=== PATIENT | female | born 1955 | race Caucasian/White ===

== ENCOUNTER → 2016-08-17 | Outpatient (CLI) | payer BC ==
[2014-06-05 22:22] VITALS: BP 168/81
[~2016-08-17] MED LIST: CYCL10TA2 PO; ESOM40SU PO; HYDR-2762 PO; TRAM-29 PO; TRAZ100T12 PO; ZOLPIDEM 5 MG TABLET. PO ONE
--- NOTE | 2016-08-18 21:24 | SLEEP ---
DATE OF STUDY: 08/17/2016 ATTENDING PHYSICIAN: Dr. Velarde. OBJECTIVE: The patient is a 60-year-old female with insomnia, hypersomnia, fatigue and memory lapses. Height 5 feet 5 inches, weight 160 pounds, body mass index 27. [place] sleep score 0. INTERPRETATION: Sleep architecture is characterized by a sleep efficiency of 79% across the 7 hours of recording time. Stage volumes are appropriate for age. Sleep onset latency is 1.3 minutes. Respiratory monitoring shows a total of 33 events for an apnea-hypopnea index of 6 events per hour of sleep. The minimum oxygen saturation is 92%. Periodic limb movements of sleep occur at the rate of 44 events per hour of sleep, 3 events per hour of sleep, associated with arousal. No cardiac arrhythmias are seen. A full EEG montage was recorded during the study and there is no epileptiform activity. IMPRESSION: Normal polysomnogram showing no evidence of sleep disordered breathing, epileptic discharges. There are periodic limb movements of sleep as stated above. RECOMMENDATIONS: One could consider for treatment for periodic limb movements of sleep, but these are not causing a significant number of arousals. Otherwise, no sleep-____ related recommendations. Thank you for letting us help with the patient's care. JUAN C KENDALL MD DR: SUNDAR/denton JOB#: [id number] / [id number] ALISIA Naylor MD
== END | disposition home or self-care (01) ==
LOC: SLPLAB 18:16
PROVIDERS: ATTEND Family Medicine
DX: G47.00 Insomnia, unspecified (principal); G47.10 Hypersomnia, unspecified; R41.3 Other amnesia
CPT/HCPCS: 95810

== ENCOUNTER 2018-08-06 19:22 | Emergency (ER) | payer BC, OTHER ==
[~2018-08-06] VITALS: Ht 162.6 cm; Wt 70.8 kg
[~2018-08-06 19:22] MED LIST changes: -HYDR-2762 PO; +HYDR-2765 PO; -TRAM-29 PO; +TRAM-48 PO; +TRAZ-86 PO; -TRAZ100T12 PO; -ZOLPIDEM 5 MG TABLET. PO ONE
[2018-08-06 19:55] VITALS: BP 194/77
[2018-08-06] MEDS ORDERED: TRAM50TA PO (20:14)
[2018-08-06] MEDS ORDERED: DIAZ5TAB PO (20:14)
--- NOTE | 2018-08-06 20:15 | PHYS DOC ---
Past Medical History Past Medical History: Other Additional Past Medical Histor: ruptured disk Past Surgical History: Appendectomy, Cholecystectomy, Other Additional Past Surgical Histo: Colon resection Alcohol Use: None Drug Use: None Adult General Chief Complaint Chief Complaint: Neck Pain HPI HPI Patient is a 62 year old female who presents with left neck pain going down into her shoulder. She does not remember an injury, but might have slept wrong. She denies fever, headache or pain in back. Review of Systems Review of Systems Constitutional: Denies fever or chills [] Respiratory: Denies cough or shortness of breath [] Cardiovascular: No additional information not addressed in HPI [] Musculoskeletal: She HPI Integument: Denies rash or skin lesions [] Neurologic: Denies headache, focal weakness or sensory changes [] Endocrine: Denies polyuria or polydipsia [] All other systems were reviewed and found to be within normal limits, except as documented in this note. Allergies Allergies Allergies Coded Allergies Type Severity Reaction Last Updated Verified Sulfa (Sulfonamide Antibiotics) Allergy Intermediate hives 05/07/13 Yes Physical Exam Physical Exam Constitutional: Well developed, well nourished, no acute distress, non-toxic appearance. [] Cardiovascular:Heart rate regular rhythm, no murmur [] Lungs & Thorax: Bilateral breath sounds clear to auscultation [] Abdomen: Bowel sounds normal, soft, no tenderness, no masses, no pulsatile masses. [] Skin: Warm, dry, no erythema, no rash. [] Back: No tenderness, no CVA tenderness. [] Extremities: Tenderness to trapezius with spasming noted, ROM intact, no edema. [] Neurologic: Alert and oriented X 3, normal motor function, normal sensory function, no focal deficits noted. [] Psychologic: Affect normal, judgement normal, mood normal. [] EKG EKG [] Radiology/Procedures Radiology/Procedures [] Course & Med Decision Making Course & Med Decision Making Pertinent Labs and Imaging studies reviewed. (See chart for details) [] Dragon Disclaimer Dragon Disclaimer This electronic medical record was generated, in whole or in part, using a voice recognition dictation system. Departure Departure Impression: Primary Impression: Trapezius muscle spasm Disposition: 01 HOME, SELF-CARE Condition: STABLE Referrals: ALISIA GONZALEZ MD (PCP) Patient Instructions: Muscle Strain Additional Instructions: Take the medication as directed. Do not drive or operate heavy machinery until he no high he reacted this medication. Follow-up with your primary care provider in 3 days if not improving or return to the emergency department if worsening. Scripts Tramadol Hcl (TRAMADOL HCL) 50 Mg Tablet 50 MG PO DAILY PRN for PAIN, #20 TAB 0 Refills Prov: JANNIE ROQUE APRN 08/06/18 Diazepam (VALIUM) 5 Mg Tablet 5 MG PO TID for muscle spasm, #12 TAB Prov: JANNIE ROQUE APRN 08/06/18 JANNIE ROQUE APRN Aug 06, 2018 20:15
== END 2018-08-06 20:50 | disposition home or self-care (01) ==
LOC: ER 19:22
DX: M62.838 Other muscle spasm (principal); M54.2 Cervicalgia; Z88.2 Allergy status to sulfonamides
CPT/HCPCS: 99283

== ENCOUNTER → 2018-08-07 | Outpatient (CLI) | payer OTHER ==
[2018-08-06 19:55] VITALS: BP 194/77
[~2018-08-07] MED LIST changes: +CLON0.2T PO; +DIAZ5TAB PO; +TRAM50TA PO
--- NOTE | 2018-08-07 23:46 | RAD ---
CERVICAL SPINE 5V History: Neck pain, left arm pain since Monday Comparison: None. Findings: 6 views cervical spine are submitted. Cervical vertebral body stature is maintained. More advanced degenerative disc disease C4-5 and C5-6 and to lesser C6-7 with spondylosis greatest C5-6 and C4-5. There is minimal posterior subluxation of C4 relative to C5 and C5 relative to C6, negligible anterior spondylolisthesis at C3-4. There is adequate alignment of the lateral masses C1 relative to C2. There is atherosclerotic calcification of the carotid arteries in the neck bilaterally. Uncovertebral and facet degenerative change contributes to neural foramina compromise greatest on the left C4-5 and C5-6. Impression: 1. There is neural foramina compromise greatest left at C4-5 and C5-6. There is degenerative disc disease and spondylosis greatest C5-6 due to as well as greatest C4-5 and C6-7. There is mild abnormal alignment. Electronically signed by: David Mclean MD (08/07/2018 11:42 PM) [facility]
== END | disposition home or self-care (01) ==
LOC: RAD 16:33
PROVIDERS: ATTEND Family Medicine
DX: M50.321 Other cervical disc degeneration at C4-C5 level (principal); M47.892 Other spondylosis, cervical region; I70.0 Atherosclerosis of aorta
CPT/HCPCS: 72050

== ENCOUNTER → 2018-08-20 | Outpatient (CLI) | payer OTHER ==
[2018-08-06 19:55] VITALS: BP 194/77
--- NOTE | 2018-08-21 09:40 | KCIC ---
MRI of the cervical spine without contrast 08/20/2018 CLINICAL HISTORY: Neck pain with left arm weakness. TECHNIQUE: Unenhanced T1-weighted, T2-weighted and inversion recovery sagittal and gradient echo and T2-weighted axial images of the cervical spine were obtained. The patient was unable to tolerate further imaging and gradient echo axial images of the cervical spine were unable to be obtained. FINDINGS: Comparison is made to radiographs of cervical spine dated 08/07/2018. Mild lateral curvature of the cervical spine is seen convex to the left. There is slight reversal of the normal cervical lordosis. Degenerative signal changes are seen involving all of the disks of the cervical spine. Degenerative signal changes are seen within the marrow surrounding these discs. Loss of height of the C4-5, C5-6 and C6-7 discs is noted. No area of abnormal signal intensity is seen involving the cervical spinal cord. At the C2-3 disc space there is a minimal generalized disc bulge. Degenerative changes are seen involving the uncovertebral and facet joints bilaterally. These findings do not result in significant central spinal canal or neural foraminal stenosis. At the C3-4 disc space there is a mild generalized disc bulge. Degenerative changes are seen involving the uncovertebral and facet joints, left greater than right. These findings when combined do not result in significant central spinal canal stenosis. Mild left neural foraminal stenosis is seen. The right neural foramen is patent. At the C4-5 disc space there is a mild to moderate generalized disc bulge. Degenerative changes are seen involving the uncovertebral and facet joints, right greater than left. These findings when combined efface the anterior and posterior CSF resulting in mild central spinal canal stenosis without evidence of cord impingement. Mild to moderate right greater than left neural foraminal stenosis is seen. At the C5-6 disc space there is a mild to moderate generalized disc bulge. Degenerative changes are seen involving the uncovertebral and facet joints, left greater than right. These findings when combined efface the anterior CSF resulting in mild central spinal canal stenosis without evidence of cord impingement. Mild bilateral neural foraminal stenosis is seen. At the C6-7 disc space there is a mild generalized disc bulge. Degenerative changes are seen involving the uncovertebral and facet joints, left greater than right. These findings when combined do not result in significant central spinal canal stenosis. Mild left neural foraminal stenosis is seen. The right neural foramen is patent. At the C7-T1 disc space there is a mild generalized disc bulge. Superimposed on this disc bulge is a left paracentral focal disc protrusion. This measures 4 mm in AP diameter. Degenerative changes are seen involving the facet joints, left greater than right. These findings when combined result in mild left lateral central spinal canal stenosis. Mild left neural foraminal stenosis is seen. The right neural foramen is patent. IMPRESSION: Degenerative changes are seen throughout the cervical spine. These findings result in mild central spinal canal stenosis at C4-5 and C5-6 and mild left lateral central spinal canal stenosis at C7-T1 without evidence of cord impingement. Multilevel neural foraminal stenosis of varying severity is seen as outlined above. Electronically signed by: Shant Ortiz MD (08/21/2018 9:37 AM) [facility]
== END | disposition home or self-care (01) ==
LOC: KCIC MRI 17:22
PROVIDERS: ATTEND Family Medicine
DX: M47.22 Other spondylosis with radiculopathy, cervical region (principal); M48.02 Spinal stenosis, cervical region; M48.03 Spinal stenosis, cervicothoracic region; M50.13 Cervical disc disorder with radiculopathy, cervicothoracic region; R29.890 Loss of height
CPT/HCPCS: 72141

== ENCOUNTER 2018-09-04 17:40 | Emergency (ER) | payer OTHER ==
[~2018-09-04] VITALS: Ht 162.6 cm; Wt 72.6 kg
[~2018-09-04 17:40] MED LIST changes: -CLON0.2T PO
[2018-09-04 18:40] LABS: BASO % 1 % (0-3); EOS # 0.1 x10^3/uL (0.0-0.7); EOS % 1 % (0-3); HEMATOCRIT 38.1 % (36.0-47.0); HEMOGLOBIN 12.9 g/dL (12.0-15.5); LYMPH # 1.5 x10^3/uL (1.0-4.8); LYMPH % 18 % (24-48); MEAN CORPUSCULAR HEMOGLOBIN 27 pg (25-35); MEAN CORPUSCULAR HGB CONC 34 g/dL (31-37); MEAN CORPUSCULAR VOLUME 80 fL (79-100); MONO # 0.4 x10^3/uL (0.0-1.1); MONO % 5 % (0-9); NEUT # 6.1 x10^3uL (1.8-7.7); NEUT % 75 % (31-73); PLATELET COUNT 227 x10^3/uL (140-400); RED BLOOD COUNT 4.73 x10^6/uL (3.50-5.40); RED CELL DISTRIBUTION WIDTH 14.2 % (11.5-14.5); WHITE BLOOD COUNT 8.1 x10^3/uL (4.0-11.0)
[2018-09-04 18:59] LABS: CALCIUM 9.1 mg/dL (8.5-10.1); POTASSIUM 3.5 mmol/L (3.5-5.1)
[2018-09-04] MEDS ORDERED: hydrALAZINE 20 MG/ML VIAL. IVP ONE (19:00)
[2018-09-04 19:04] LABS: ALBUMIN 3.8 g/dL (3.4-5.0); MAGNESIUM 2.3 mg/dL (1.8-2.4); TOTAL BILIRUBIN 0.3 mg/dL (0.2-1.0); TOTAL PROTEIN 7.8 g/dL (6.4-8.2)
--- NOTE | 2018-09-04 20:26 | RAD ---
PQRS Compliance statement: One or more of the following individualized dose reduction techniques were utilized for this examination: 1. Automated exposure control. 2. Adjustment of the mA and/or kV according to patient size. 3. Use of iterative reconstruction technique. Indication:HTN, nausea, dizzy, no priors TECHNIQUE: CT head without IV contrast COMPARISON:None FINDINGS: No pathologic extra-axial or intra-axial fluid collection. The ventricles and basal cisterns are within normal limits. No acute intracranial bleed. No focal loss of mendez-white differentiation. Orbits are within normal limits. No suspicious calvarial lesion. Visualized paranasal sinuses and mastoid air cells are clear. IMPRESSION: No acute intracranial process. If concern for acute ischemic stroke is high, please consider MRI brain. Electronically signed by: Moises Clements DO (09/04/2018 8:23 PM) [facility]
[2018-09-04 20:31] LABS: BILIRUBIN,URINE NEGATIVE (NEG); CLARITY,URINE CLEAR; COLOR,URINE YELLOW; NITRITE,URINE NEGATIVE (NEG); PH,URINE 7.5; PROTEIN,URINE NEGATIVE (NEG-TRACE); UROBILINOGEN,URINE 0.2 mg/dL (0.2 mg/dL)
[2018-09-04 20:40] LABS: BACTERIA,URINE 0 /HPF (0-FEW); RBC,URINE 0 /HPF (0-2); SQUAMOUS EPITHELIAL CELL,UR FEW /LPF; WBC,URINE 0 /HPF (0-4)
[2018-09-04 20:46] VITALS: BP 161/70
[2018-09-04] MEDS ORDERED: CLON0.2T PO (21:08)
--- NOTE | 2018-09-04 21:08 | PHYS DOC ---
Past Medical History Past Medical History: Hypertension, Other Additional Past Medical Histor: ruptured disk, CHRONIC NECK PAIN Past Surgical History: Appendectomy, Cholecystectomy, Other Additional Past Surgical Histo: Colon resection Alcohol Use: None Drug Use: None Adult General Chief Complaint Chief Complaint: HYPERTENSION HPI HPI Patient is a 62 year old [f__sex] who presents with [] Review of Systems Review of Systems Constitutional: Denies fever or chills [] Eyes: Denies change in visual acuity, redness, or eye pain [] HENT: Denies nasal congestion or sore throat [] Respiratory: Denies cough or shortness of breath [] Cardiovascular: No additional information not addressed in HPI [] GI: Denies abdominal pain, nausea, vomiting, bloody stools or diarrhea [] : Denies dysuria or hematuria [] Musculoskeletal: Denies back pain or joint pain [] Integument: Denies rash or skin lesions [] Neurologic: Denies headache, focal weakness or sensory changes [] Endocrine: Denies polyuria or polydipsia [] All other systems were reviewed and found to be within normal limits, except as documented in this note. Current Medications Current Medications Current Medications Medications (Trade) Dose Ordered Sig/Paul Start Time Stop Time Status Last Admin Dose Admin Hydralazine HCl (Apresoline Inj) 20 mg 1X ONCE 09/04/18 19:00 09/04/18 19:01 DC 09/04/18 19:28 20 MG Allergies Allergies Allergies Coded Allergies Type Severity Reaction Last Updated Verified Sulfa (Sulfonamide Antibiotics) Allergy Intermediate hives 05/07/13 Yes Physical Exam Physical Exam Constitutional: Well developed, well nourished, no acute distress, non-toxic appearance. [] HENT: Normocephalic, atraumatic, bilateral external ears normal, oropharynx moist, no oral exudates, nose normal. [] Eyes: PERRLA, EOMI, conjunctiva normal, no discharge. [] Neck: Normal range of motion, no tenderness, supple, no stridor. [] Cardiovascular:Heart rate regular rhythm, no murmur [] Lungs & Thorax: Bilateral breath sounds clear to auscultation [] Abdomen: Bowel sounds normal, soft, no tenderness, no masses, no pulsatile masses. [] Skin: Warm, dry, no erythema, no rash. [] Back: No tenderness, no CVA tenderness. [] Extremities: No tenderness, no cyanosis, no clubbing, ROM intact, no edema. [] Neurologic: Alert and oriented X 3, normal motor function, normal sensory function, no focal deficits noted. [] Psychologic: Affect normal, judgement normal, mood normal. [] Current Patient Data Vital Signs Vital Signs Date Time Temp Pulse Resp B/P (MAP) Pulse Ox O2 Delivery O2 Flow Rate FiO2 09/04/18 19:28 56 208/91 09/04/18 18:25 98.5 20 100 Room Air 98.5 Lab Values Laboratory Tests Test 09/04/18 18:30 09/04/18 20:00 White Blood Count 8.1 x10^3/uL (4.0-11.0) Red Blood Count 4.73 x10^6/uL (3.50-5.40) Hemoglobin 12.9 g/dL (12.0-15.5) Hematocrit 38.1 % (36.0-47.0) Mean Corpuscular Volume 80 fL (79-100) Mean Corpuscular Hemoglobin 27 pg (25-35) Mean Corpuscular Hemoglobin Concent 34 g/dL (31-37) Red Cell Distribution Width 14.2 % (11.5-14.5) Platelet Count 227 x10^3/uL (140-400) Neutrophils (%) (Auto) 75 % (31-73) H Lymphocytes (%) (Auto) 18 % (24-48) L Monocytes (%) (Auto) 5 % (0-9) Eosinophils (%) (Auto) 1 % (0-3) Basophils (%) (Auto) 1 % (0-3) Neutrophils # (Auto) 6.1 x10^3uL (1.8-7.7) Lymphocytes # (Auto) 1.5 x10^3/uL (1.0-4.8) Monocytes # (Auto) 0.4 x10^3/uL (0.0-1.1) Eosinophils # (Auto) 0.1 x10^3/uL (0.0-0.7) Basophils # (Auto) 0.0 x10^3/uL (0.0-0.2) Sodium Level 142 mmol/L (136-145) Potassium Level 3.5 mmol/L (3.5-5.1) Chloride Level 102 mmol/L (98-107) Carbon Dioxide Level 28 mmol/L (21-32) Anion Gap 12 (6-14) Blood Urea Nitrogen 12 mg/dL (7-20) Creatinine 1.0 mg/dL (0.6-1.0) Estimated GFR (Cockcroft-Gault) 56.0 BUN/Creatinine Ratio 12 (6-20) Glucose Level 99 mg/dL (70-99) Calcium Level 9.1 mg/dL (8.5-10.1) Magnesium Level 2.3 mg/dL (1.8-2.4) Total Bilirubin 0.3 mg/dL (0.2-1.0) Aspartate Amino Transferase (AST) 19 U/L (15-37) Alanine Aminotransferase (ALT) 23 U/L (14-59) Alkaline Phosphatase 106 U/L (46-116) Creatine Kinase 163 U/L (26-192) Creatine Kinase MB (Mass) 1.2 ng/mL (0.0-3.6) Creatine Kinase MB Relative Index 0.7 % (0-4) Troponin I Quantitative < 0.017 ng/mL (0.000-0.055) Total Protein 7.8 g/dL (6.4-8.2) Albumin 3.8 g/dL (3.4-5.0) Albumin/Globulin Ratio 1.0 (1.0-1.7) Urine Collection Type Unknown Urine Color Yellow Urine Clarity Clear Urine pH 7.5 Urine Specific [place] <=1.005 Urine Protein Negative mg/dL (NEG-TRACE) Urine Glucose (UA) Negative mg/dL (NEG) Urine Ketones (Stick) Negative mg/dL (NEG) Urine Blood Negative (NEG) Urine Nitrite Negative (NEG) Urine Bilirubin Negative (NEG) Urine Urobilinogen Dipstick 0.2 mg/dL (0.2 mg/dL) Urine Leukocyte Esterase Negative (NEG) Urine RBC 0 /HPF (0-2) Urine WBC 0 /HPF (0-4) Urine Squamous Epithelial Cells Few /LPF Urine Bacteria 0 /HPF (0-FEW) Laboratory Tests 09/04/18 18:30 Laboratory Tests 09/04/18 18:30 EKG EKG @1852 NSR at 59bpm, NO ST elevation Radiology/Procedures Radiology/Procedures [] Course & Med Decision Making Course & Med Decision Making Pertinent Labs and Imaging studies reviewed. (See chart for details) [] Dragon Disclaimer Dragon Disclaimer This electronic medical record was generated, in whole or in part, using a voice recognition dictation system. Departure Departure Impression: Primary Impression: Hypertensive urgency Disposition: HOME, SELF-CARE Condition: IMPROVED Referrals: ALISIA GONZALEZ MD (PCP) Patient Instructions: Hypertension, Jcew-rv-Emhw Scripts Clonidine Hcl (CLONIDINE HCL) 0.2 Mg Tablet 1 TAB PO BID PRN for HYPERTENSION, SEE COMMENTS, #20 TAB 0 Refills Take for Systolic blood pressure > 185 and/or diastolic blood pressure > 105. Prov: DARLENE RIOS DO 09/04/18 DARLENE RIOS DO Sep 04, 2018 21:08
--- NOTE | 2018-09-05 07:57 | EKG ---
[facility] [address] [place] [address] Test Date: 2018-09-04 Test Time: 18:52:57 Pat Name: ELLIE SOW Department: Room: Gender: F [employer]: : 1955 Requested By: DARLENE RIOS Order Number: [id number] Reading MD: Hamzah Armstrong MD Measurements Intervals [place] Rate: 59 P: 38 OK: 146 QRS: 24 QRSD: 106 T: 51 QT: 468 QTc: 468 Interpretive Statements SINUS RHYTHM Electronically Signed On 09-06-2018 9:12:28 CDT by Hamzah Armstrong MD
== END 2018-09-04 21:24 | disposition home or self-care (01) ==
LOC: ER 17:40
DX: I16.0 Hypertensive urgency (principal); R07.89 Other chest pain; G89.29 Other chronic pain; M54.2 Cervicalgia
CPT/HCPCS: 36415; 70450; 80053; 81001; 82553; 83735; 84484; 85025; 93005; 96374; 99284; J0360

== ENCOUNTER → 2019-01-11 | Outpatient (CLI) | payer OTHER ==
[~2019-01-11] MED LIST changes: +CLON0.2T PO; +REGADENOSON 0.4 MG/5 ML DISP.SYRIN. IV ONE
--- NOTE | 2019-01-11 08:26 | CARD ---
MR#: [id number] Date of Study: 01/11/2019 Ordering Physician: REYNA SPARKS, Referring Physician: REYNA SPARKS Tech: Jessica Urias JIMMY APPROVED REPORT EXAM: Two-dimensional and M-mode echocardiogram with Doppler and color Doppler. Other Information Quality : GoodHR: 64bpm Rhythm : NSR INDICATION Dyspnea 2D DIMENSIONS RVDd3.0 (2.9-3.5cm)Left Atrium(2D)3.4 (1.6-4.0cm) IVSd1.0 (0.7-1.1cm)Aortic Root(2D)3.0 (2.0-3.7cm) LVDd4.8 (3.9-5.9cm)LVOT Diameter1.9 (1.8-2.4cm) PWd0.9 (0.7-1.1cm)LVDs3.0 (2.5-4.0cm) FS (%) 38.9 %SV75.5 ml LVEF(%)69.1 (>50%) Aortic Valve AoV Peak Nacho.157.7cm/sAoV VTI33.2cm AO Peak GR.9.9mmHgLVOT Peak Nacho.104.8cm/s AO Mean GR.5mmHgAVA (VMAX)1.82cm2 JULIANNA (VTI)1.90cm2 Mitral Valve MV E Knxfctdu089.1cm/sMV DECEL SLSC532af MV A Tfzpvslg53.2cm/sE/A Ratio1.1 Pulmonary Valve PV Peak Qywdhhcf87.2cm/s Tricuspid Valve TR P. Ydbvotni266ix/sRAP KTYWPQHY6tpLl TR Peak Gr.16rzJfLAKF74bwAj LEFT VENTRICLE The left ventricle is normal size. There is normal left ventricular wall thickness. The left ventricu lar systolic function is normal and the ejection fraction is within normal range. The Ejection Fracti on is 65-70%. There is normal LV segmental wall motion. Transmitral Doppler flow pattern is Grade II- pseudonormal filling dynamics. RIGHT VENTRICLE The right ventricle is normal size. There is normal right ventricular wall thickness. The right ventr icular systolic function is normal. ATRIA The left atrium size is normal. The right atrium size is normal. The interatrial septum is intact wit h no evidence for an atrial septal defect or patent foramen ovale as noted on 2-D or Doppler imaging. AORTIC VALVE The aortic valve is normal in structure and function. The aortic valve is trileaflet. Doppler and Col or Flow revealed no significant aortic regurgitation. There is no significant aortic valvular stenosi s. There is no aortic valvular vegetation. MITRAL VALVE The mitral valve is thickened but opens well. There is no evidence of mitral valve prolapse. There is no mitral valve stenosis. Doppler and Color-flow revealed trace to mild mitral regurgitation. TRICUSPID VALVE The tricuspid valve is normal in structure and function. Doppler and Color Flow revealed trace tricus pid regurgitation. The PA pressure was estimated at 39 mmHg. There is no tricuspid valve prolapse or vegetation. There is no tricuspid valve stenosis. PULMONIC VALVE Doppler and Color Flow revealed mild pulmonic valvular regurgitation. There is no pulmonic valvular s tenosis. GREAT VESSELS The aortic root is normal in size. The ascending aorta is normal in size. The IVC is normal in size a nd collapses >50% with inspiration. PERICARDIAL EFFUSION There is no evidence of significant pericardial effusion. Critical Notification Critical Value: No <Conclusion> The left ventricular systolic function is normal and the ejection fraction is within normal range. Th e Ejection Fraction is 65-70%. There is normal LV segmental wall motion. Signed by : Hamzah Armstrong, Electronically Approved : 01/11/2019 08:26:11
--- NOTE | 2019-01-11 14:11 | RAD ---
MR#: [id number] Date of Study: 01/11/2019 Ordering Physician: REYNA SPARKS Referring Physician: KAMRYN DAS Tech: Regan Zhang RT (R) (N) APPROVED REPORT Test Type: Pharmacological Stress Nurse/Tech: Jessica Akhtar R.N. Test Indications: MCCONNELL Cardiac History: HTN Medications: See Electronic Medical Record Medical History: See Electronic Medical Record Resting ECG: SR w/inverted T wave in leads AVL, V2 Resting Heart Rate: 65 bpm Resting Blood Pressure: 219/89mmHg Pretest Chest Pain: No chest pain Nurse/Tech Notes S1S2, lungs CTA, notified Dr. Sparks of [facility] b/p - to go ahead with MPI Consent: The procedure was explained to the patient in lay terms. Informed consent was witnessed. Mega eout was entered into [employer]. History and Stress Test performed by [facility]. Details Pharmacologic stress testing was performed using 0.4mg per 5ml of regadenoson given intravenously ove r 7-10 seconds. Stress Symptoms SOB POST EXERCISE Reason for Termination: Infusion complete Max HR: 96 bpm Max Blood Pressure: 218/92mmHg Blood Pressure response to exercise: Normal blood pressure response during stress. Heart Rate response to exercise: wnl Chest Pain: No. Arrhythmia: No. ST Change: No. INTERPRETATION Stress EKG Conclusion: Baseline EKG showed sinus rhythm. No ischemic changes at peak stress. No arr hythmias. Rest: Stress: Viability: Radiopharm.Tc99m QlbyjgimtPq68q Sestamibi Kbdj86aZb 33mCi Duration 15min. 15min. Img Date 01/11/2019 01/11/2019 Inj-Img Vwvc59lrl. 60min. Rest Admin Site:IV - Right AntecubitalAdministrator:MILTON Maloney Stress Admin Site: IV - Right AntecubitalAdministrator: MILTON Maloney STRESS DATA End Diast. Vol.81.0mlLVEDV index BSA46.0ml End Syst. Vol.20.0mlLVESV index BSA11.0ml Myocardial Mxmg168.0gEject. Rlxhsleh33.0% Stress Scores Regional WT1.00Summed WT9.00 Regional WM0.00Summed WM0.00 Study quality was good. Left Ventricular size was Normal at Rest and Stress. Lung uptake was . Left Ventricular ejection fraction is 75%. The rest and stress images show normal perfusion, normal contraction and thickening. LV Perf. Quant 17 Seg. SSS0.00 17 Seg. SRS0.00 17 Seg. SDS0.00 Stress Defect Extent (% LAD)0.00Rest Defect Extent (% LAD)3.80Rev. Defect Extent (% LAD)0.00 Stress Defect Extent (% LCX) 0.00Rest Defect Extent (% LCX)0.00Rev. Defect Extent (% LCX)0.00 Stress Defect Extent (% RCA)0.00Rest Defect Extent (% RCA)0.00Rev. Defect Extent (% RCA)0.00 Stress Defect Extent (% MANASA)0.00Rest Defect Extent (% MANASA)1.50Rev. Defect Extent (% MANASA)0.00 Conclusion 1. Regadenoson cardioisotope stress test did not show any evidence of ischemia or infarct. 2. Normal left ventricular systolic function with ejection fraction calculated at 75%. 3. Low risk for cardiac events. Signed by : Reyna Sparks, Electronically Approved : 01/11/2019 14:11:28
== END | disposition home or self-care (01) ==
LOC: ECHO 07:36
PROVIDERS: ATTEND Internal Medicine Cardiovascular Disease
DX: I08.8 Other rheumatic multiple valve diseases (principal); I10 Essential (primary) hypertension
CPT/HCPCS: 78452; 93017; 93306; A9500; J2785

== ENCOUNTER → 2019-01-23 | Outpatient (CLI) | payer OTHER ==
[~2019-01-23] MED LIST changes: -REGADENOSON 0.4 MG/5 ML DISP.SYRIN. IV ONE
--- NOTE | 2019-01-23 16:07 | RAD ---
DATE: 01/23/2019. EXAM: MAMMO [place] SCREENING BILATERAL HISTORY: Routine screening. COMPARISON: Previous mammogram from 2016. This study was interpreted with the benefit of Computerized Aided Detection (CAD). FINDINGS: Breast Density: HETERO The breast parenchyma Is heterogeneously dense, which could reduce sensitivity of mammography. Breast parenchyma level C. The skin and nipples are within normal limits. No suspicious calcifications, spiculated mass or area of architectural distortion. Small round mass along the posterior nipple line in the left breast also present on previous exam and considered benign given interval stability. IMPRESSION: No mammographic evidence of malignancy. BI-RADS CATEGORY: 2 BENIGN FINDING(S) RECOMMENDED FOLLOW-UP: 12M 12 MONTH FOLLOW-UP PQRS compliance statement: Patient information was entered into a reminder system with a target due date for the next mammogram. Mammography is a sensitive method for finding small breast cancers, but it does not detect them all and is not a substitute for careful clinical examination. A negative mammogram does not negate a clinically suspicious finding and should not result in delay in biopsying a clinically suspicious abnormality. "Our facility is accredited by the [employer] Mammography Program."
== END | disposition home or self-care (01) ==
LOC: MAMMO 12:26
PROVIDERS: ATTEND Nurse Practitioner Family
DX: Z12.31 Encounter for screening mammogram for malignant neoplasm of breast (principal); N63.20 Unspecified lump in the left breast, unspecified quadrant
CPT/HCPCS: 77063; 77067

== ENCOUNTER 2019-07-22 04:28 | Observation (INO) | payer OTHER ==
[~2019-07-22] VITALS: Ht 162.6 cm; Wt 68.2 kg
[~2019-07-22 04:28] MED LIST changes: +TRAZ-123 PO; -TRAZ-86 PO
[2019-07-22] MEDS ORDERED: NITROGLYCERIN SUBLINGUAL 0.4 MG BOTTLE OF 25. SL PRN ×2 (04:45→05:45)
[2019-07-22] MEDS ORDERED: MORPHINE SULFATE 2 MG/ML VIAL. IV/SQ PRN (04:45)
--- NOTE | 2019-07-22 04:46 | PHYS DOC ---
Past Medical History Past Medical History: Hypertension, Other Additional Past Medical Histor: ruptured disk, CHRONIC NECK PAIN Past Surgical History: Appendectomy, Cholecystectomy, Other Additional Past Surgical Histo: Colon resection Smoking Status: Never Smoker Alcohol Use: None Drug Use: None Adult General Chief Complaint Chief Complaint: CHEST PAIN HPI HPI 63-year-old female with underlying history of hypertension since the emergency Department complaints of not feeling well initially around 11:30 PM, she states she woke up around 2 AM with chest pressure and tightness. She describes shortness of breath, denies any nausea, vomiting, diaphoresis. She states standing and exertion worsens her pain, nothing makes it better. She is underlying history of hypertension has seen cardiology within the last 6 months for stress test performed which were unremarkable. She denies any lower extremity edema or recent travel. She does describe family history of coronary artery disease. The chest pain/pressure does not radiate. Review of Systems Review of Systems Constitutional: Denies fever or chills [] Respiratory: Denies cough or shortness of breath [] Cardiovascular: No additional information not addressed in HPI [] GI: Denies abdominal pain, nausea, vomiting, bloody stools or diarrhea [] Musculoskeletal: Denies back pain or joint pain [] Neurologic: Denies headache, focal weakness or sensory changes [] All other systems were reviewed and found to be within normal limits, except as documented in this note. Current Medications Current Medications Current Medications Medications (Trade) Dose Ordered Sig/[facility] Start Time Stop Time Status Last Admin Dose Admin Aspirin (Children'S Aspirin) 324 mg 1X ONCE 07/22/19 05:00 07/22/19 05:01 DC 07/22/19 05:09 324 MG Morphine Sulfate (Morphine Sulfate) 2 mg PRN Q15MIN PRN 07/22/19 04:45 07/23/19 04:44 07/22/19 05:10 2 MG Nitroglycerin (Nitrostat) 0.4 mg PRN Q5MIN PRN 07/22/19 04:45 07/23/19 04:44 07/22/19 05:09 0.4 MG Allergies Allergies Allergies Coded Allergies Type Severity Reaction Last Updated Verified Sulfa (Sulfonamide Antibiotics) Allergy Intermediate hives 05/07/13 Yes Physical Exam Physical Exam Constitutional: Well developed, well nourished, no acute distress, non-toxic appearance. [] HENT: Normocephalic, atraumatic, bilateral external ears normal, oropharynx moist, no oral exudates, nose normal. [] Eyes: PERRLA, EOMI, conjunctiva normal, no discharge. [] Neck: Normal range of motion, no tenderness, supple, no stridor. [] Cardiovascular:Heart rate regular rhythm, no murmur [] Lungs & Thorax: Bilateral breath sounds clear to auscultation [] Abdomen: Bowel sounds normal, soft, no tenderness, no masses, no pulsatile masses. [] Skin: Warm, dry, no erythema, no rash. [] Back: No tenderness, no CVA tenderness. [] Extremities: No tenderness, no cyanosis, no clubbing, ROM intact, no edema. [] Neurologic: Alert and oriented X 3, normal motor function, normal sensory function, no focal deficits noted. [] Psychologic: Affect normal, judgement normal, mood normal. [] Current Patient Data Vital Signs Vital Signs Date Time Temp Pulse Resp B/P (MAP) Pulse Ox O2 Delivery O2 Flow Rate FiO2 07/22/19 05:10 96 07/22/19 05:09 72 115/56 Lab Values Laboratory Tests Test 07/22/19 04:50 White Blood Count 8.6 x10^3/uL (4.0-11.0) Red Blood Count 4.82 x10^6/uL (3.50-5.40) Hemoglobin 12.8 g/dL (12.0-15.5) Hematocrit 38.8 % (36.0-47.0) Mean Corpuscular Volume 81 fL (79-100) Mean Corpuscular Hemoglobin 27 pg (25-35) Mean Corpuscular Hemoglobin Concent 33 g/dL (31-37) Red Cell Distribution Width 14.8 % (11.5-14.5) H Platelet Count 250 x10^3/uL (140-400) Neutrophils (%) (Auto) 84 % (31-73) H Lymphocytes (%) (Auto) 13 % (24-48) L Monocytes (%) (Auto) 2 % (0-9) Eosinophils (%) (Auto) 1 % (0-3) Basophils (%) (Auto) 0 % (0-3) Neutrophils # (Auto) 7.2 x10^3/uL (1.8-7.7) Lymphocytes # (Auto) 1.1 x10^3/uL (1.0-4.8) Monocytes # (Auto) 0.2 x10^3/uL (0.0-1.1) Eosinophils # (Auto) 0.1 x10^3/uL (0.0-0.7) Basophils # (Auto) 0.0 x10^3/uL (0.0-0.2) D-Dimer ([place]) 0.49 ug/mlFEU (0.00-0.50) Sodium Level 139 mmol/L (136-145) Potassium Level 3.5 mmol/L (3.5-5.1) Chloride Level 102 mmol/L (98-107) Carbon Dioxide Level 29 mmol/L (21-32) Anion Gap 8 (6-14) Blood Urea Nitrogen 29 mg/dL (7-20) H Creatinine 1.5 mg/dL (0.6-1.0) H Estimated GFR (Cockcroft-Gault) 35.0 BUN/Creatinine Ratio 19 (6-20) Glucose Level 191 mg/dL (70-99) H Calcium Level 9.1 mg/dL (8.5-10.1) Magnesium Level 2.0 mg/dL (1.8-2.4) Total Bilirubin 0.3 mg/dL (0.2-1.0) Aspartate Amino Transferase (AST) 17 U/L (15-37) Alanine Aminotransferase (ALT) 21 U/L (14-59) Alkaline Phosphatase 106 U/L (46-116) Troponin I Quantitative < 0.017 ng/mL (0.000-0.055) RG-Csx-[id number]-Type Natriuretic Peptide 113 pg/mL (0-124) Total Protein 6.9 g/dL (6.4-8.2) Albumin 3.7 g/dL (3.4-5.0) Albumin/Globulin Ratio 1.2 (1.0-1.7) Lipase 198 U/L (73-393) Laboratory Tests 07/22/19 04:50 Laboratory Tests 07/22/19 04:50 EKG EKG EKG reviewed 0 437, heart rate 72, normal sinus rhythm, axis, she has underlying evidence of incomplete right bundle branch block. She does have prolonged QT appreciated, No STEMI[] Radiology/Procedures Radiology/Procedures CXR wet read reveals no evidence of acute consolidation/pulmonary edema - 0524[] Course & Med Decision Making Course & Med Decision Making Pertinent Labs and Imaging studies reviewed. (See chart for details) []63-year-old female with underlying history of hypertension since the emergency Department complaints of not feeling well initially around 11:30 PM, she states she woke up around 2 AM with chest pressure and tightness. She describes shortness of breath, denies any nausea, vomiting, diaphoresis. She states standing and exertion worsens her pain, nothing makes it better. She is underlying history of hypertension has seen cardiology within the last 6 months for stress test performed which were unremarkable. She denies any lower extremity edema or recent travel. She does describe family history of coronary artery disease. The chest pain/pressure does not radiate. labs/Imaging reviewed Negative cardiac enzyme x 1 Ddimer negative ASA/NTG, morphine prn Zofran as needed HEART Score 4 Recommend admit with further cardiology consultation Dragon Disclaimer Dragon Disclaimer This electronic medical record was generated, in whole or in part, using a voice recognition dictation system. The HEART Score for CP Pts HEART Score for Chest Pain: HEART Score for Chest Pain Response (Comments) Value History Moderately Suspicious 1 ECG Nonspecific Repolarizatio 1 Age >45 - < 65 1 Risk Factors 1 or 2 Risk Factors 1 Total 4 Risk Factors: Risk Factors: DM, Current or recent (<one month) smoker, HTN, HLP, family history of CAD, obesity. Risk Scores: Score 0 - 3: 2.5% MACE over next 6 weeks - Discharge Home Score 4 - 6: 20.3% MACE over next 6 weeks - Admit for Clinical Observation Score 7 - 10: 72.7% MACE over next 6 weeks - Early Invasive Strategies Departure Departure Impression: Primary Impression: Chest pain Additional Impression: Hypertension Disposition: ADMITTED INPATIENT Admitting Physician: HIMZabrina Condition: STABLE Referrals: LIZBETH DEAN APRN (PCP) Problem Qualifiers Primary Impression: Chest pain Chest pain type: unspecified Qualified Codes: R07.9 - Chest pain, unspecified Additional Impression: Hypertension Hypertension type: essential hypertension Qualified Codes: I10 - Essential (primary) hypertension DO FORTE MD Jul 22, 2019 04:46
[2019-07-22 04:58] LABS: BASO % 0 % (0-3); EOS # 0.1 x10^3/uL (0.0-0.7); EOS % 1 % (0-3); HEMATOCRIT 38.8 % (36.0-47.0); HEMOGLOBIN 12.8 g/dL (12.0-15.5); LYMPH # 1.1 x10^3/uL (1.0-4.8); LYMPH % 13 % (24-48); MEAN CORPUSCULAR HEMOGLOBIN 27 pg (25-35); MEAN CORPUSCULAR HGB CONC 33 g/dL (31-37); MEAN CORPUSCULAR VOLUME 81 fL (79-100); MONO # 0.2 x10^3/uL (0.0-1.1); MONO % 2 % (0-9); NEUT # 7.2 x10^3/uL (1.8-7.7); NEUT % 84 % (31-73); PLATELET COUNT 250 x10^3/uL (140-400); RED BLOOD COUNT 4.82 x10^6/uL (3.50-5.40); RED CELL DISTRIBUTION WIDTH 14.8 % (11.5-14.5); WHITE BLOOD COUNT 8.6 x10^3/uL (4.0-11.0)
[2019-07-22] MEDS ORDERED: ASPIRIN CHEWABLE 81 MG TABLET. PO ONE (05:00)
[2019-07-22 05:07] LABS: CALCIUM 9.1 mg/dL (8.5-10.1); CREATININE 1.5 mg/dL (0.6-1.0); POTASSIUM 3.5 mmol/L (3.5-5.1)
[2019-07-22 05:13] LABS: ALBUMIN 3.7 g/dL (3.4-5.0); ALBUMIN/GLOBULIN RATIO 1.2 (1.0-1.7); TOTAL BILIRUBIN 0.3 mg/dL (0.2-1.0); TOTAL PROTEIN 6.9 g/dL (6.4-8.2)
[2019-07-22] MEDS ORDERED: MORPHINE SULFATE 2 MG/ML VIAL. IV PRN (05:45)
[2019-07-22] MEDS ORDERED: ONDANSETRON PF 4 MG/2 ML VIAL. IV PRN (05:45)
[2019-07-22] MEDS ORDERED: IV NORMAL SALINE 1000ML BAG 1,000 ML IV SCH (06:00)
[2019-07-22] MEDS ORDERED: ONDANSETRON PF 4 MG/2 ML VIAL. IVP ONE (06:00)
[2019-07-22 07:48] LABS: AMORPHOUS SEDIMENT,UR PRESENT /HPF; BACTERIA,URINE FEW /HPF (0-FEW); BILIRUBIN,URINE NEGATIVE (NEG); CLARITY,URINE CLEAR; COLOR,URINE YELLOW; NITRITE,URINE NEGATIVE (NEG); PROTEIN,URINE NEGATIVE (NEG-TRACE); RBC,URINE OCC /HPF (0-2); SQUAMOUS EPITHELIAL CELL,UR FEW /LPF; UROBILINOGEN,URINE 0.2 mg/dL (0.2 mg/dL)
--- NOTE | 2019-07-22 08:18 | RAD ---
EXAM: PORTABLE CHEST 1V INDICATION: Chest pain. TECHNIQUE: Single AP view COMPARISON: None FINDINGS: The heart size is normal. The great vessels appear unremarkable. There is no hilar or mediastinal mass. The lungs show mild pulmonary vascular congestion. There is no pleural effusion or pneumothorax. There are no significant osseous abnormalities. IMPRESSION: Mild pulmonary vascular congestion. Otherwise no acute cardiopulmonary process. Electronically signed by: Dori Hernandez MD (07/22/2019 8:15 AM) [id number]
[2019-07-22] MEDS ORDERED: traMADol 50 MG TABLET PO PRN (10:30)
[2019-07-22] MEDS ORDERED: HYDROcodone/APAP 7.5/325MG 1 TAB TABLET PO ONE (10:30)
[2019-07-22] MEDS ORDERED: LABETALOL 20 MG/4 ML DISP.SYRIN. IVP PRN (10:30)
[2019-07-22] MEDS ORDERED: CYCLOBENZAPRINE 10 MG TABLET. PO PRN (10:30)
[2019-07-22] MEDS ORDERED: traMADol 50 MG TABLET PO SCH (11:00)
[2019-07-22] MEDS ORDERED: diazePAM 5 MG TABLET PO SCH (11:00)
--- NOTE | 2019-07-22 15:36 | PDOC1 ---
History and Physical Date of Admission Date of Admission 07/22/2019 Identification/Chief Complaint Chief Complaint My chest hurts History of Present Illness History of Present Illness Patient is a 63-year-old female with past medical history of essential hypertension was in her usual state of health until approximately 2 in the morning prior to her visit to the emergency department when she woke up due to chest tightness. she describes precordial area pressure that she rates at 7 out of 10 in intensity with some nausea no vomiting no diaphoresis, no sensation of impending doom was reported by the patient no diaphoresis. Patient denies similar symptoms recently, she was evaluated in our institution on January 2019 she had a normal echo at that time with an ejection fraction of 65-70%. The patient denies any recent illnesses no cough no sputum production no sick contacts. She denies episodes recently of similar symptoms she denies waking up in the middle of the night with dyspnea she denies orthopnea no palpitations. Patient denies any rashes recently. Denies abdominal discomfort no nausea vomiting or diarrhea was reported. No urinary symptoms either. We were asked to admit the patient for chest pain evaluation. Initially the patient had hypertension which might as well have been the culprit of her discomforts. Current Problem List Problem List Problems Medical Problems: (1) Chest pain Status: Acute (2) Hypertension Status: Acute Current Medications Current Medications Current Medications Medications (Trade) Dose Ordered Sig/[facility] Start Time Stop Time Status Last Admin Dose Admin Acetaminophen/ Hydrocodone Bitart (Lortab 7.5/325) 1 tab 1X ONCE 07/22/19 10:30 07/22/19 10:51 DC 07/22/19 13:41 1 TAB Aspirin (Children'S Aspirin) 324 mg 1X ONCE 07/22/19 05:00 07/22/19 05:01 DC 07/22/19 05:09 324 MG Cyclobenzaprine HCl (Flexeril) 10 mg PRN TID PRN 07/22/19 10:30 Diazepam (Valium) 5 mg TID 07/22/19 11:00 Labetalol HCl (Normodyne Iv Push) 10 mg PRN Q2HR PRN 07/22/19 10:30 Morphine Sulfate (Morphine Sulfate) 2 mg PRN Q2HR PRN 07/22/19 05:45 07/23/19 05:44 Nitroglycerin (Nitrostat) 0.4 mg PRN Q5MIN PRN 07/22/19 05:45 07/23/19 05:44 Ondansetron HCl (Zofran) 4 mg PRN Q8HRS PRN 07/22/19 05:45 07/23/19 05:44 Pantoprazole Sodium (Protonix) 40 mg BIDAC 07/23/19 11:30 Sodium Chloride 1,000 ml @ 100 mls/hr Q10H 07/22/19 06:00 07/23/19 05:59 07/22/19 06:00 100 MLS/HR Tramadol HCl (Ultram) 50 mg BID 07/22/19 11:00 Trazodone HCl (Desyrel) 100 mg HS 07/22/19 21:00 Allergies Allergies Allergies Coded Allergies Type Severity Reaction Last Updated Verified Sulfa (Sulfonamide Antibiotics) Allergy Intermediate hives 05/07/13 Yes ROS Review of System CONSTITUTIONAL: No fever or chills EYES: No recent changes SKIN: No rash or itching CARDIOVASCULAR: No chest pain, syncope, palpitations, or edema RESPIRATORY: No SOB or cough GASTROINTESTINAL: No nausea, vomiting or abdominal pain NEUROLOGICAL: No headaches or weakness ENDOCRINE: No cold or heat intolerance GENITOURINARY: No urgency or frequency of urination MUSCULOSKELETAL: No back pain or joint pain LYMPHATICS: No enlarged lymph nodes PSYCHIATRIC: No anxiety or depression Physical Exam Physical Exam GEN.: No apparent distress. Alert and oriented. HEENT: Head is normocephalic, atraumatic NECK: Supple. LUNGS: Clear to auscultation. HEART: RRR, S1, S2 present. Peripheral pulses intact ABDOMEN: Soft, nontender. Positive bowel sounds. EXTREMITIES: Without any cyanosis. NEUROLOGIC: Normal speech, normal tone PSYCHIATRIC: Normal affect, normal mood. SKIN: No ulcerations Vitals Vitals Vital Signs Date Time Temp Pulse Resp B/P (MAP) Pulse Ox O2 Delivery O2 Flow Rate FiO2 07/22/19 13:41 20 97 07/22/19 11:35 90 168/74 (105) Room Air 07/22/19 04:30 97.9 97.9 Labs Labs Laboratory Tests Test 07/22/19 04:50 07/22/19 07:15 07/22/19 09:10 07/22/19 11:58 White Blood Count 8.6 x10^3/uL (4.0-11.0) Red Blood Count 4.82 x10^6/uL (3.50-5.40) Hemoglobin 12.8 g/dL (12.0-15.5) Hematocrit 38.8 % (36.0-47.0) Mean Corpuscular Volume 81 fL (79-100) Mean Corpuscular Hemoglobin 27 pg (25-35) Mean Corpuscular Hemoglobin Concent 33 g/dL (31-37) Red Cell Distribution Width 14.8 % (11.5-14.5) Platelet Count 250 x10^3/uL (140-400) Neutrophils (%) (Auto) 84 % (31-73) Lymphocytes (%) (Auto) 13 % (24-48) Monocytes (%) (Auto) 2 % (0-9) Eosinophils (%) (Auto) 1 % (0-3) Basophils (%) (Auto) 0 % (0-3) Neutrophils # (Auto) 7.2 x10^3/uL (1.8-7.7) Lymphocytes # (Auto) 1.1 x10^3/uL (1.0-4.8) Monocytes # (Auto) 0.2 x10^3/uL (0.0-1.1) Eosinophils # (Auto) 0.1 x10^3/uL (0.0-0.7) Basophils # (Auto) 0.0 x10^3/uL (0.0-0.2) D-Dimer ([place]oreto) 0.49 ug/mlFEU (0.00-0.50) Sodium Level 139 mmol/L (136-145) Potassium Level 3.5 mmol/L (3.5-5.1) Chloride Level 102 mmol/L (98-107) Carbon Dioxide Level 29 mmol/L (21-32) Anion Gap 8 (6-14) Blood Urea Nitrogen 29 mg/dL (7-20) Creatinine 1.5 mg/dL (0.6-1.0) Estimated GFR (Cockcroft-Gault) 35.0 BUN/Creatinine Ratio 19 (6-20) Glucose Level 191 mg/dL (70-99) Calcium Level 9.1 mg/dL (8.5-10.1) Magnesium Level 2.0 mg/dL (1.8-2.4) Total Bilirubin 0.3 mg/dL (0.2-1.0) Aspartate Amino Transf (AST/SGOT) 17 U/L (15-37) Alanine Aminotransferase (ALT/SGPT) 21 U/L (14-59) Alkaline Phosphatase 106 U/L (46-116) Troponin I Quantitative < 0.017 ng/mL (0.000-0.055) < 0.017 ng/mL (0.000-0.055) < 0.017 ng/mL (0.000-0.055) HZ-Ooz-P-Type Natriuretic Peptide 113 pg/mL (0-124) Total Protein 6.9 g/dL (6.4-8.2) Albumin 3.7 g/dL (3.4-5.0) Albumin/Globulin Ratio 1.2 (1.0-1.7) Lipase 198 U/L (73-393) Urine Color Yellow Urine Clarity Clear Urine pH 7.0 Urine Specific [place] 1.020 Urine Protein Negative mg/dL (NEG-TRACE) Urine Glucose (UA) Negative mg/dL (NEG) Urine Ketones (Stick) Negative mg/dL (NEG) Urine Blood Negative (NEG) Urine Nitrite Negative (NEG) Urine Bilirubin Negative (NEG) Urine Urobilinogen Dipstick 0.2 mg/dL (0.2 mg/dL) Urine Leukocyte Esterase Moderate (NEG) Urine RBC Occ /HPF (0-2) Urine WBC 5-10 /HPF (0-4) Urine Squamous Epithelial Cells Few /LPF Urine Amorphous Sediment Present /HPF Urine Bacteria Few /HPF (0-FEW) Laboratory Tests Test 07/22/19 04:50 07/22/19 07:15 07/22/19 09:10 07/22/19 11:58 White Blood Count 8.6 x10^3/uL (4.0-11.0) Red Blood Count 4.82 x10^6/uL (3.50-5.40) Hemoglobin 12.8 g/dL (12.0-15.5) Hematocrit 38.8 % (36.0-47.0) Mean Corpuscular Volume 81 fL (79-100) Mean Corpuscular Hemoglobin 27 pg (25-35) Mean Corpuscular Hemoglobin Concent 33 g/dL (31-37) Red Cell Distribution Width 14.8 % (11.5-14.5) Platelet Count 250 x10^3/uL (140-400) Neutrophils (%) (Auto) 84 % (31-73) Lymphocytes (%) (Auto) 13 % (24-48) Monocytes (%) (Auto) 2 % (0-9) Eosinophils (%) (Auto) 1 % (0-3) Basophils (%) (Auto) 0 % (0-3) Neutrophils # (Auto) 7.2 x10^3/uL (1.8-7.7) Lymphocytes # (Auto) 1.1 x10^3/uL (1.0-4.8) Monocytes # (Auto) 0.2 x10^3/uL (0.0-1.1) Eosinophils # (Auto) 0.1 x10^3/uL (0.0-0.7) Basophils # (Auto) 0.0 x10^3/uL (0.0-0.2) D-Dimer ([place]) 0.49 ug/mlFEU (0.00-0.50) Sodium Level 139 mmol/L (136-145) Potassium Level 3.5 mmol/L (3.5-5.1) Chloride Level 102 mmol/L (98-107) Carbon Dioxide Level 29 mmol/L (21-32) Anion Gap 8 (6-14) Blood Urea Nitrogen 29 mg/dL (7-20) Creatinine 1.5 mg/dL (0.6-1.0) Estimated GFR (Cockcroft-Gault) 35.0 BUN/Creatinine Ratio 19 (6-20) Glucose Level 191 mg/dL (70-99) Calcium Level 9.1 mg/dL (8.5-10.1) Magnesium Level 2.0 mg/dL (1.8-2.4) Total Bilirubin 0.3 mg/dL (0.2-1.0) Aspartate Amino Transf (AST/SGOT) 17 U/L (15-37) Alanine Aminotransferase (ALT/SGPT) 21 U/L (14-59) Alkaline Phosphatase 106 U/L (46-116) Troponin I Quantitative < 0.017 ng/mL (0.000-0.055) < 0.017 ng/mL (0.000-0.055) < 0.017 ng/mL (0.000-0.055) RJ-Yaa-Q-Type Natriuretic Peptide 113 pg/mL (0-124) Total Protein 6.9 g/dL (6.4-8.2) Albumin 3.7 g/dL (3.4-5.0) Albumin/Globulin Ratio 1.2 (1.0-1.7) Lipase 198 U/L (73-393) Urine Color Yellow Urine Clarity Clear Urine pH 7.0 Urine Specific [place] 1.020 Urine Protein Negative mg/dL (NEG-TRACE) Urine Glucose (UA) Negative mg/dL (NEG) Urine Ketones (Stick) Negative mg/dL (NEG) Urine Blood Negative (NEG) Urine Nitrite Negative (NEG) Urine Bilirubin Negative (NEG) Urine Urobilinogen Dipstick 0.2 mg/dL (0.2 mg/dL) Urine Leukocyte Esterase Moderate (NEG) Urine RBC Occ /HPF (0-2) Urine WBC 5-10 /HPF (0-4) Urine Squamous Epithelial Cells Few /LPF Urine Amorphous Sediment Present /HPF Urine Bacteria Few /HPF (0-FEW) VTE Prophylaxis Ordered VTE Prophylaxis Devices: No VTE Pharmacological Prophylaxi: Yes Assessment/Plan Assessment/Plan Chest pain rule out ACS Essential hypertension Chronic kidney disease stage II Plan Trend troponin resume home medications monitor BP symptomatic relief of symptoms further recommendations based on clinical course. DVT prophylaxis: VIANCA Colon MD Jul 22, 2019 15:36
[2019-07-22] MEDS ORDERED: LISI1TAB23 PO (15:40)
--- NOTE | 2019-07-22 15:45 | PDOC3 ---
Discharge Summary Visit Information Date of Admission: Jul 22, 2019 Date of Discharge: Jul 22, 2019 Admitting Diagnosis Comment: Chest pain rule out ACS Final Diagnosis Problems Medical Problems: (1) Chest pain Status: Acute (2) Hypertension uncontrolled Status: Acute Brief Hospital Course Allergies Allergies Coded Allergies Type Severity Reaction Last Updated Verified Sulfa (Sulfonamide Antibiotics) Allergy Intermediate hives 05/07/13 Yes Vital Signs Vital Signs Date Time Temp Pulse Resp B/P (MAP) Pulse Ox O2 Delivery O2 Flow Rate FiO2 07/22/19 13:41 20 97 07/22/19 11:35 90 168/74 (105) Room Air 07/22/19 04:30 97.9 97.9 Lab Results Laboratory Tests Test 07/22/19 04:50 07/22/19 07:15 07/22/19 09:10 07/22/19 11:58 White Blood Count 8.6 x10^3/uL (4.0-11.0) Red Blood Count 4.82 x10^6/uL (3.50-5.40) Hemoglobin 12.8 g/dL (12.0-15.5) Hematocrit 38.8 % (36.0-47.0) Mean Corpuscular Volume 81 fL (79-100) Mean Corpuscular Hemoglobin 27 pg (25-35) Mean Corpuscular Hemoglobin Concent 33 g/dL (31-37) Red Cell Distribution Width 14.8 % (11.5-14.5) Platelet Count 250 x10^3/uL (140-400) Neutrophils (%) (Auto) 84 % (31-73) Lymphocytes (%) (Auto) 13 % (24-48) Monocytes (%) (Auto) 2 % (0-9) Eosinophils (%) (Auto) 1 % (0-3) Basophils (%) (Auto) 0 % (0-3) Neutrophils # (Auto) 7.2 x10^3/uL (1.8-7.7) Lymphocytes # (Auto) 1.1 x10^3/uL (1.0-4.8) Monocytes # (Auto) 0.2 x10^3/uL (0.0-1.1) Eosinophils # (Auto) 0.1 x10^3/uL (0.0-0.7) Basophils # (Auto) 0.0 x10^3/uL (0.0-0.2) D-Dimer ([place]) 0.49 ug/mlFEU (0.00-0.50) Sodium Level 139 mmol/L (136-145) Potassium Level 3.5 mmol/L (3.5-5.1) Chloride Level 102 mmol/L (98-107) Carbon Dioxide Level 29 mmol/L (21-32) Anion Gap 8 (6-14) Blood Urea Nitrogen 29 mg/dL (7-20) Creatinine 1.5 mg/dL (0.6-1.0) Estimated GFR (Cockcroft-Gault) 35.0 BUN/Creatinine Ratio 19 (6-20) Glucose Level 191 mg/dL (70-99) Calcium Level 9.1 mg/dL (8.5-10.1) Magnesium Level 2.0 mg/dL (1.8-2.4) Total Bilirubin 0.3 mg/dL (0.2-1.0) Aspartate Amino Transf (AST/SGOT) 17 U/L (15-37) Alanine Aminotransferase (ALT/SGPT) 21 U/L (14-59) Alkaline Phosphatase 106 U/L (46-116) Troponin I Quantitative < 0.017 ng/mL (0.000-0.055) < 0.017 ng/mL (0.000-0.055) < 0.017 ng/mL (0.000-0.055) QO-Mcd-T-Type Natriuretic Peptide 113 pg/mL (0-124) Total Protein 6.9 g/dL (6.4-8.2) Albumin 3.7 g/dL (3.4-5.0) Albumin/Globulin Ratio 1.2 (1.0-1.7) Lipase 198 U/L (73-393) Urine Color Yellow Urine Clarity Clear Urine pH 7.0 Urine Specific [place] 1.020 Urine Protein Negative mg/dL (NEG-TRACE) Urine Glucose (UA) Negative mg/dL (NEG) Urine Ketones (Stick) Negative mg/dL (NEG) Urine Blood Negative (NEG) Urine Nitrite Negative (NEG) Urine Bilirubin Negative (NEG) Urine Urobilinogen Dipstick 0.2 mg/dL (0.2 mg/dL) Urine Leukocyte Esterase Moderate (NEG) Urine RBC Occ /HPF (0-2) Urine WBC 5-10 /HPF (0-4) Urine Squamous Epithelial Cells Few /LPF Urine Amorphous Sediment Present /HPF Urine Bacteria Few /HPF (0-FEW) Laboratory Tests Test 07/22/19 04:50 07/22/19 07:15 07/22/19 09:10 07/22/19 11:58 White Blood Count 8.6 x10^3/uL (4.0-11.0) Red Blood Count 4.82 x10^6/uL (3.50-5.40) Hemoglobin 12.8 g/dL (12.0-15.5) Hematocrit 38.8 % (36.0-47.0) Mean Corpuscular Volume 81 fL (79-100) Mean Corpuscular Hemoglobin 27 pg (25-35) Mean Corpuscular Hemoglobin Concent 33 g/dL (31-37) Red Cell Distribution Width 14.8 % (11.5-14.5) Platelet Count 250 x10^3/uL (140-400) Neutrophils (%) (Auto) 84 % (31-73) Lymphocytes (%) (Auto) 13 % (24-48) Monocytes (%) (Auto) 2 % (0-9) Eosinophils (%) (Auto) 1 % (0-3) Basophils (%) (Auto) 0 % (0-3) Neutrophils # (Auto) 7.2 x10^3/uL (1.8-7.7) Lymphocytes # (Auto) 1.1 x10^3/uL (1.0-4.8) Monocytes # (Auto) 0.2 x10^3/uL (0.0-1.1) Eosinophils # (Auto) 0.1 x10^3/uL (0.0-0.7) Basophils # (Auto) 0.0 x10^3/uL (0.0-0.2) D-Dimer ([place]) 0.49 ug/mlFEU (0.00-0.50) Sodium Level 139 mmol/L (136-145) Potassium Level 3.5 mmol/L (3.5-5.1) Chloride Level 102 mmol/L (98-107) Carbon Dioxide Level 29 mmol/L (21-32) Anion Gap 8 (6-14) Blood Urea Nitrogen 29 mg/dL (7-20) Creatinine 1.5 mg/dL (0.6-1.0) Estimated GFR (Cockcroft-Gault) 35.0 BUN/Creatinine Ratio 19 (6-20) Glucose Level 191 mg/dL (70-99) Calcium Level 9.1 mg/dL (8.5-10.1) Magnesium Level 2.0 mg/dL (1.8-2.4) Total Bilirubin 0.3 mg/dL (0.2-1.0) Aspartate Amino Transf (AST/SGOT) 17 U/L (15-37) Alanine Aminotransferase (ALT/SGPT) 21 U/L (14-59) Alkaline Phosphatase 106 U/L (46-116) Troponin I Quantitative < 0.017 ng/mL (0.000-0.055) < 0.017 ng/mL (0.000-0.055) < 0.017 ng/mL (0.000-0.055) VW-Psh-M-Type Natriuretic Peptide 113 pg/mL (0-124) Total Protein 6.9 g/dL (6.4-8.2) Albumin 3.7 g/dL (3.4-5.0) Albumin/Globulin Ratio 1.2 (1.0-1.7) Lipase 198 U/L (73-393) Urine Color Yellow Urine Clarity Clear Urine pH 7.0 Urine Specific [place] 1.020 Urine Protein Negative mg/dL (NEG-TRACE) Urine Glucose (UA) Negative mg/dL (NEG) Urine Ketones (Stick) Negative mg/dL (NEG) Urine Blood Negative (NEG) Urine Nitrite Negative (NEG) Urine Bilirubin Negative (NEG) Urine Urobilinogen Dipstick 0.2 mg/dL (0.2 mg/dL) Urine Leukocyte Esterase Moderate (NEG) Urine RBC Occ /HPF (0-2) Urine WBC 5-10 /HPF (0-4) Urine Squamous Epithelial Cells Few /LPF Urine Amorphous Sediment Present /HPF Urine Bacteria Few /HPF (0-FEW) Brief Hospital Course Ms. Carrillo is a 63 old female who presented with chest discomfort son onset that woke her up from sleep. Patient was seen in consultation by cardiology who recommended outpatient follow-up. Patient had 3 sets of cardiac enzymes negative and she was deemed appropriate for discharge given that her symptoms had result. She had hypertension during her hospital stay but before being given labetalol that was ordered for her her blood pressure was improved. I have encourage her to follow up with her primary care physician within one week. Signs and symptoms of alarm and when to seek medical attention was discussed with the patient prior to dismissal. She will be given a prescription for lisinopril and HCTZ noted to have better BP control No neurological deficits evident no cardiac events were noted on monitor. She was in good spirits to be dismissed home all questions and concerns were addressed prior to dismissal Gen.: well-developed well-nourished in no apparent distress Head: Normal shape atraumatic Neck: Supple no JVD no carotid bruit or lymphadenopathy no thyromegaly Chest: Lungs clear to auscultation with good inspiratory effort no crackles rales or rhonchi Cardiovascular: S1-S2 regular rhythm no murmurs gallops or rubs Abdomen: Bowel sounds present soft nontender no hepatosplenomegaly appreciated sign Extremities: No clubbing no cyanosis no edema peripheral pulses palpated bilaterally Neurological: Alert awake oriented in person time place and situation, cranial nerves II through XII intact, no motor or sensory deficits appreciated Discharge Information Condition at Discharge: Improved Follow Up: Weeks Disposition/Orders: D/C to Home Scheduled Cyclobenzaprine Hcl (Cyclobenzaprine Hcl) 10 Mg Tablet, 10 MG PO PRN TID, (Reported) Entered as Reported by: SUMAN SALINAS on 05/07/13835 Last Action: Continued on 07/22/191030 by VIANCA SOLANO MD Diazepam (Valium) 5 Mg Tablet, 5 MG PO TID for muscle spasm, #12 Prescribed by: JANNIE ROQUE APRN on 08/06/182013 Last Action: Continued on 07/22/191030 by VIANCA SOLANO MD Esomeprazole Magnesium (Nexium Packet) 40 Mg Suspdr.pkt, 40 MG PO BID, (Reported) Entered as Reported by: SMUAN SALINAS on 05/07/13836 Last Action: Converted on 07/22/191030 by VIANCA SOLANO MD Hydrocodone Bit/Acetaminophen (Hydrocodone-Apap 7.5-325 ) 1 Each Tablet, 1 EACH PO 1X, (Reported) Entered as Reported by: SUMAN SALINAS on 05/07/13837 Last Action: Continued on 07/22/191030 by VIANCA FARELA, MD Lisinopril/Hydrochlorothiazide (Lisinopril-Hctz 10-12.5 Mg Tab) 1 Each Tablet, 1 TAB PO DAILY for hypertension, #30 Ref 5 Prescribed by: VIANCA SOLANO MD on 07/22/19 1540 Tramadol Hcl (Ultram) 50 Mg Tablet, 50 MG PO BID, (Reported) Entered as Reported by: SUMAN SALINAS on 05/07/13 0841 Last Action: Continued on 07/22/19 103 by VIANCA SOLANO MD Trazodone Hcl (Trazodone Hcl) 100 Mg Tablet, 100 MG PO HS, (Reported) Entered as Reported by: SUMAN SALINAS on 05/07/13 0842 Last Action: Continued on 07/22/191030 by VIANCA SOLANO MD Scheduled PRN Clonidine Hcl (Clonidine Hcl) 0.2 Mg Tablet, 1 TAB PO BID PRN for HYPERTENSION, SEE COMMENTS, #20 Ref 0 Take for Systolic blood pressure > 185 and/or diastolic blood pressure > 105. Prescribed by: DARLENE RIOS D.O. on 09/04/182107 Last Action: HELD on 07/22/191030 by VIANCA SOLANO MD Tramadol Hcl (Tramadol Hcl) 50 Mg Tablet, 50 MG PO DAILY PRN for PAIN, #20 Ref 0 Prescribed by: JANNIE ROQUE APRN on 08/06/182013 Last Action: Continued on 07/22/191030 by MD XIOMARA REYES HECTOR M MD Jul 22, 2019 15:45
[2019-07-22 16:50] VITALS: BP 146/72
--- NOTE | 2019-07-22 17:50 | NUR ---
Discharge Note: [facility] Discharge instructions and discharge home medications reviewed with Patient and a copy given. All questions have been answered and understanding verbalized. The following instructions and handouts were given: angioedema, hypotension Discontinued lines and drains: IV catheter removed intact. Patient discharged to Home with self care via family transportation.
--- NOTE | 2019-07-22 17:52 | PDOC2 ---
CONSULT Date of Consult Date of Consult DATE: 07/22/19 TIME: 17:39 Reason for Consult Reason for Consult: chest pain Referring Physician Referring Physician: Dr. Manjarrez Identification/Chief Complaint Chief Complaint Chest pain Source Source: Chart review, Patient History of Present Illness Reason for Visit: The patient is a 63-year-old female with a history of hypertension and chronic kidney disease reported episodes of chest pain earlier today. Her EKG showed no ischemic ischemic changes. Her troponin has been normal 3. The patient had a previous workup including a normal Lexiscan in January 2019. Chest x-ray shows mild vascular congestion. The patient's pain has resolved. Her rhythm has remained stable. Past Medical History Cardiovascular: HTN, Other (chest pain) Renal/: Chronic renal insuff Past Surgical History Past Surgical History: No pertinent history Family History Family History: Hypertension Social History No Current Problem List Problem List Problems Medical Problems: (1) Chest pain Status: Acute (2) Hypertension Status: Acute Current Medications Current Medications Current Medications Aspirin (Children'S Aspirin) 324 mg 1X ONCE PO Last administered on 07/22/19at 05:09; Start 07/22/19 at 05:00; Stop 07/22/19 at 05:01; Status DC Nitroglycerin (Nitrostat) 0.4 mg PRN Q5MIN PRN SL CP RATING > 1/10 Last administered on 07/22/19at 05:09; Start 07/22/19 at 04:45; Stop 07/22/19 at 05:49; Status DC Morphine Sulfate (Morphine Sulfate) 2 mg PRN Q15MIN PRN IV/SQ PAIN GREATER THAN 3/10 Last administered on 07/22/19at 05:10; Start 07/22/19 at 04:45; Stop 07/23/19 at 04:44 Ondansetron HCl (Zofran) 4 mg 1X ONCE IVP Last administered on 07/22/19at 05:40; Start 07/22/19 at 06:00; Stop 07/22/19 at 06:01; Status DC Ondansetron HCl (Zofran) 4 mg PRN Q8HRS PRN IV NAUSEA/VOMITING 1ST CHOICE; Start 07/22/19 at 05:45; Stop 07/23/19 at 05:44 Morphine Sulfate (Morphine Sulfate) 2 mg PRN Q2HR PRN IV SEVERE PAIN 7-10; Start 07/22/19 at 05:45; Stop 07/23/19 at 05:44 Sodium Chloride 1,000 ml @ 100 mls/hr Q10H IV Last administered on 07/22/19at 06:00; Start 07/22/19 at 06:00; Stop 07/23/19 at 05:59 Nitroglycerin (Nitrostat) 0.4 mg PRN Q5MIN PRN SL CHEST PAIN; Start 07/22/19 at 05:45; Stop 07/23/19 at 05:44 Cyclobenzaprine HCl (Flexeril) 10 mg PRN TID PRN PO MUSCLE SPASMS; Start 07/22/19 at 10:30 Diazepam (Valium) 5 mg TID PO ; Start 07/22/19 at 11:00 Acetaminophen/ Hydrocodone Bitart (Lortab 7.5/325) 1 tab 1X ONCE PO Last administered on 07/22/19at 13:41; Start 07/22/19 at 10:30; Stop 07/22/19 at 10:51; Status DC Tramadol HCl (Ultram) 50 mg PRN DAILY PRN PO MILD TO MODERATE PAIN; Start 07/22/19 at 10:30 Tramadol HCl (Ultram) 50 mg BID PO ; Start 07/22/19 at 11:00 Trazodone HCl (Desyrel) 100 mg HS PO ; Start 07/22/19 at 21:00 Pantoprazole Sodium (Protonix) 40 mg BIDAC PO ; Start 07/23/19 at 11:30 Labetalol HCl (Normodyne Iv Push) 10 mg PRN Q2HR PRN IVP HYPERTENSION; Start 07/22/19 at 10:30 Active Scripts Active Lisinopril-Hctz 10-12.5 Mg Tab (Lisinopril/Hydrochlorothiazide) 1 Each Tablet 1 Tab PO DAILY Clonidine Hcl 0.2 Mg Tablet 1 Tab PO BID PRN Take for Systolic blood pressure > 185 and/or diastolic blood pressure > 105. Tramadol Hcl 50 Mg Tablet 50 Mg PO DAILY PRN Valium (Diazepam) 5 Mg Tablet 5 Mg PO TID Reported Trazodone Hcl 100 Mg Tablet 100 Mg PO HS Ultram (Tramadol Hcl) 50 Mg Tablet 50 Mg PO BID Hydrocodone-Apap 7.5-325 (Hydrocodone Bit/Acetaminophen) 1 Each Tablet 1 Each PO 1X Nexium Packet (Esomeprazole Magnesium) 40 Mg Suspdr.pkt 40 Mg PO BID Cyclobenzaprine Hcl 10 Mg Tablet 10 Mg PO PRN TID Allergies Allergies: Coded Allergies: Sulfa (Sulfonamide Antibiotics) (Verified Allergy, Intermediate, hives, 05/07/13) ROS Cardiovascular: yes Chest Pain Physical Exam General: No acute distress HEENT: Atraumatic Lungs: Clear to auscultation Heart: Regular rate Abdomen: Normal bowel sounds Vitals VITALS Vital Signs Date Time Temp Pulse Resp B/P (MAP) Pulse Ox O2 Delivery O2 Flow Rate FiO2 07/22/19 13:41 20 97 07/22/19 11:35 90 168/74 (105) Room Air 07/22/19 04:30 97.9 97.9 Labs Labs Laboratory Tests Test 07/22/19 04:50 07/22/19 07:15 07/22/19 09:10 07/22/19 11:58 White Blood Count 8.6 x10^3/uL (4.0-11.0) Red Blood Count 4.82 x10^6/uL (3.50-5.40) Hemoglobin 12.8 g/dL (12.0-15.5) Hematocrit 38.8 % (36.0-47.0) Mean Corpuscular Volume 81 fL (79-100) Mean Corpuscular Hemoglobin 27 pg (25-35) Mean Corpuscular Hemoglobin Concent 33 g/dL (31-37) Red Cell Distribution Width 14.8 % (11.5-14.5) Platelet Count 250 x10^3/uL (140-400) Neutrophils (%) (Auto) 84 % (31-73) Lymphocytes (%) (Auto) 13 % (24-48) Monocytes (%) (Auto) 2 % (0-9) Eosinophils (%) (Auto) 1 % (0-3) Basophils (%) (Auto) 0 % (0-3) Neutrophils # (Auto) 7.2 x10^3/uL (1.8-7.7) Lymphocytes # (Auto) 1.1 x10^3/uL (1.0-4.8) Monocytes # (Auto) 0.2 x10^3/uL (0.0-1.1) Eosinophils # (Auto) 0.1 x10^3/uL (0.0-0.7) Basophils # (Auto) 0.0 x10^3/uL (0.0-0.2) D-Dimer ([place]) 0.49 ug/mlFEU (0.00-0.50) Sodium Level 139 mmol/L (136-145) Potassium Level 3.5 mmol/L (3.5-5.1) Chloride Level 102 mmol/L (98-107) Carbon Dioxide Level 29 mmol/L (21-32) Anion Gap 8 (6-14) Blood Urea Nitrogen 29 mg/dL (7-20) Creatinine 1.5 mg/dL (0.6-1.0) Estimated GFR (Cockcroft-Gault) 35.0 BUN/Creatinine Ratio 19 (6-20) Glucose Level 191 mg/dL (70-99) Calcium Level 9.1 mg/dL (8.5-10.1) Magnesium Level 2.0 mg/dL (1.8-2.4) Total Bilirubin 0.3 mg/dL (0.2-1.0) Aspartate Amino Transf (AST/SGOT) 17 U/L (15-37) Alanine Aminotransferase (ALT/SGPT) 21 U/L (14-59) Alkaline Phosphatase 106 U/L (46-116) Troponin I Quantitative < 0.017 ng/mL (0.000-0.055) < 0.017 ng/mL (0.000-0.055) < 0.017 ng/mL (0.000-0.055) HJ-Oxp-Z-Type Natriuretic Peptide 113 pg/mL (0-124) Total Protein 6.9 g/dL (6.4-8.2) Albumin 3.7 g/dL (3.4-5.0) Albumin/Globulin Ratio 1.2 (1.0-1.7) Lipase 198 U/L (73-393) Urine Color Yellow Urine Clarity Clear Urine pH 7.0 Urine Specific [place] 1.020 Urine Protein Negative mg/dL (NEG-TRACE) Urine Glucose (UA) Negative mg/dL (NEG) Urine Ketones (Stick) Negative mg/dL (NEG) Urine Blood Negative (NEG) Urine Nitrite Negative (NEG) Urine Bilirubin Negative (NEG) Urine Urobilinogen Dipstick 0.2 mg/dL (0.2 mg/dL) Urine Leukocyte Esterase Moderate (NEG) Urine RBC Occ /HPF (0-2) Urine WBC 5-10 /HPF (0-4) Urine Squamous Epithelial Cells Few /LPF Urine Amorphous Sediment Present /HPF Urine Bacteria Few /HPF (0-FEW) Test 07/22/19 15:30 Troponin I Quantitative < 0.017 ng/mL (0.000-0.055) Laboratory Tests Test 07/22/19 04:50 07/22/19 07:15 07/22/19 09:10 07/22/19 11:58 White Blood Count 8.6 x10^3/uL (4.0-11.0) Red Blood Count 4.82 x10^6/uL (3.50-5.40) Hemoglobin 12.8 g/dL (12.0-15.5) Hematocrit 38.8 % (36.0-47.0) Mean Corpuscular Volume 81 fL (79-100) Mean Corpuscular Hemoglobin 27 pg (25-35) Mean Corpuscular Hemoglobin Concent 33 g/dL (31-37) Red Cell Distribution Width 14.8 % (11.5-14.5) Platelet Count 250 x10^3/uL (140-400) Neutrophils (%) (Auto) 84 % (31-73) Lymphocytes (%) (Auto) 13 % (24-48) Monocytes (%) (Auto) 2 % (0-9) Eosinophils (%) (Auto) 1 % (0-3) Basophils (%) (Auto) 0 % (0-3) Neutrophils # (Auto) 7.2 x10^3/uL (1.8-7.7) Lymphocytes # (Auto) 1.1 x10^3/uL (1.0-4.8) Monocytes # (Auto) 0.2 x10^3/uL (0.0-1.1) Eosinophils # (Auto) 0.1 x10^3/uL (0.0-0.7) Basophils # (Auto) 0.0 x10^3/uL (0.0-0.2) D-Dimer ([place]) 0.49 ug/mlFEU (0.00-0.50) Sodium Level 139 mmol/L (136-145) Potassium Level 3.5 mmol/L (3.5-5.1) Chloride Level 102 mmol/L (98-107) Carbon Dioxide Level 29 mmol/L (21-32) Anion Gap 8 (6-14) Blood Urea Nitrogen 29 mg/dL (7-20) Creatinine 1.5 mg/dL (0.6-1.0) Estimated GFR (Cockcroft-Gault) 35.0 BUN/Creatinine Ratio 19 (6-20) Glucose Level 191 mg/dL (70-99) Calcium Level 9.1 mg/dL (8.5-10.1) Magnesium Level 2.0 mg/dL (1.8-2.4) Total Bilirubin 0.3 mg/dL (0.2-1.0) Aspartate Amino Transf (AST/SGOT) 17 U/L (15-37) Alanine Aminotransferase (ALT/SGPT) 21 U/L (14-59) Alkaline Phosphatase 106 U/L (46-116) Troponin I Quantitative < 0.017 ng/mL (0.000-0.055) < 0.017 ng/mL (0.000-0.055) < 0.017 ng/mL (0.000-0.055) PY-Jen-N-Type Natriuretic Peptide 113 pg/mL (0-124) Total Protein 6.9 g/dL (6.4-8.2) Albumin 3.7 g/dL (3.4-5.0) Albumin/Globulin Ratio 1.2 (1.0-1.7) Lipase 198 U/L (73-393) Urine Color Yellow Urine Clarity Clear Urine pH 7.0 Urine Specific [place] 1.020 Urine Protein Negative mg/dL (NEG-TRACE) Urine Glucose (UA) Negative mg/dL (NEG) Urine Ketones (Stick) Negative mg/dL (NEG) Urine Blood Negative (NEG) Urine Nitrite Negative (NEG) Urine Bilirubin Negative (NEG) Urine Urobilinogen Dipstick 0.2 mg/dL (0.2 mg/dL) Urine Leukocyte Esterase Moderate (NEG) Urine RBC Occ /HPF (0-2) Urine WBC 5-10 /HPF (0-4) Urine Squamous Epithelial Cells Few /LPF Urine Amorphous Sediment Present /HPF Urine Bacteria Few /HPF (0-FEW) Test 07/22/19 15:30 Troponin I Quantitative < 0.017 ng/mL (0.000-0.055) Images Images Chest x-ray as above. Assessment/Plan Assessment/Plan 1. Chest pain. Resolved. Negative enzymes 3. EKG shows no acute ischemic changes. Normal Lexiscan nuclear test last January. Patient has increased her activity is pain-free. She wishes to go home. I believe she may be discharged on medical treatment and will follow-up in the office in 3-4 weeks. 2. Hypertension. Improving on present treatment. 3. Chronic kidney disease. Continuing monitoring. Thank you for allowing us to participate in the care of your patient. KIKI VAZQUEZ MD Jul 22, 2019 17:52
[2019-07-22] MEDS ORDERED: traZODone 100 MG TABLET. PO SCH (21:00)
[2019-07-23] MEDS ORDERED: PANTOPRAZOLE 40 MG TABLET.DR. PO SCH (11:30)
== END 2019-07-22 17:05 | disposition home or self-care (01) ==
LOC: ER 04:28 → ED HOLD 05:39
PROVIDERS: ADMIT Internal Medicine; ATTEND Internal Medicine
DX: R07.89 Other chest pain (principal); I12.9 Hypertensive chronic kidney disease with stage 1 through stage 4 chronic kidney disease, or unspecified chronic kidney disease; N18.2 Chronic kidney disease, stage 2 (mild); M54.2 Cervicalgia; G89.29 Other chronic pain; Z79.82 Long term (current) use of aspirin; Z90.49 Acquired absence of other specified parts of digestive tract
CPT/HCPCS: 36415; 71045; 80053; 81001; 83690; 83735; 83880; 84484; 85025; 85379; 87086; 96374; 96375; G0378; J2270; J2405; J7030; G0379; 99285-25

== ENCOUNTER → 2019-12-17 | Outpatient (CLI) | payer OTHER ==
[~2019-12-17] MED LIST changes: +LISI1TAB23 PO
[2019-12-17 10:28] LABS: BASO % 1 % (0-3); EOS # 0.1 x10^3/uL (0.0-0.7); EOS % 2 % (0-3); HEMATOCRIT 37.2 % (36.0-47.0); HEMOGLOBIN 12.8 g/dL (12.0-15.5); LYMPH # 1.4 x10^3/uL (1.0-4.8); LYMPH % 26 % (24-48); MEAN CORPUSCULAR HEMOGLOBIN 28 pg (25-35); MEAN CORPUSCULAR HGB CONC 35 g/dL (31-37); MEAN CORPUSCULAR VOLUME 82 fL (79-100); MONO # 0.4 x10^3/uL (0.0-1.1); MONO % 8 % (0-9); NEUT # 3.4 x10^3/uL (1.8-7.7); NEUT % 63 % (31-73); PLATELET COUNT 212 x10^3/uL (140-400); RED BLOOD COUNT 4.56 x10^6/uL (3.50-5.40); RED CELL DISTRIBUTION WIDTH 14.7 % (11.5-14.5); WHITE BLOOD COUNT 5.4 x10^3/uL (4.0-11.0)
[2019-12-17 11:06] LABS: ALBUMIN 3.9 g/dL (3.4-5.0); ALBUMIN/GLOBULIN RATIO 1.1 (1.0-1.7); CALCIUM 8.8 mg/dL (8.5-10.1); GFR 55.6; POTASSIUM 3.9 mmol/L (3.5-5.1); TOTAL BILIRUBIN 0.3 mg/dL (0.2-1.0); TOTAL PROTEIN 7.6 g/dL (6.4-8.2)
[2019-12-17 11:08] LABS: CHOLESTEROL/HDL RATIO 5.3
[2019-12-17 11:09] LABS: FREE T4 0.99 ng/dL (0.76-1.46); THYROID STIM HORMONE (TSH) 1.774 uIU/mL (0.358-3.74)
== END | disposition home or self-care (01) ==
LOC: LAB 08:57
PROVIDERS: ATTEND Family Medicine
DX: I10 Essential (primary) hypertension (principal); E78.5 Hyperlipidemia, unspecified
CPT/HCPCS: 36415; 80053; 80061; 83721; 84439; 84443; 85025

== ENCOUNTER → 2020-03-10 | Outpatient (CLI) | payer OTHER ==
[2020-03-10 14:42] LABS: BILIRUBIN,URINE NEGATIVE (NEG); CLARITY,URINE CLEAR; COLOR,URINE ORANGE; NITRITE,URINE POSITIVE (NEG); PROTEIN,URINE NEGATIVE (NEG-TRACE)
[2020-03-10 14:56] LABS: RBC,URINE 0 /HPF (0-2)
[2020-03-10 14:57] LABS: BACTERIA,URINE MANY /HPF (0-FEW); WBC,URINE 20-40 /HPF (0-4)
[2020-03-10 15:03] LABS: ALBUMIN/GLOBULIN RATIO 1.1 (1.0-1.7); CALCIUM 8.9 mg/dL (8.5-10.1); CREATININE 0.8 mg/dL (0.6-1.0); TOTAL BILIRUBIN 0.4 mg/dL (0.2-1.0); TOTAL PROTEIN 7.6 g/dL (6.4-8.2)
[2020-03-10 15:05] LABS: CHOLESTEROL/HDL RATIO 3.9
[2020-03-11 03:09] LABS: HEMOGLOBIN A1C 5.3 % (4.8-5.6)
== END ==
LOC: LAB 14:07
PROVIDERS: ATTEND Family Medicine
DX: E78.5 Hyperlipidemia, unspecified (principal); R73.09 Other abnormal glucose; R30.0 Dysuria
CPT/HCPCS: 36415; 80053; 80061; 81001; 83036; 83721; 87086

== ENCOUNTER → 2020-04-02 | Outpatient (CLI) | payer OTHER | LOC: LAB 09:22 | PROVIDERS: ATTEND Family Medicine | DX: N30.00 Acute cystitis without hematuria (principal) | CPT/HCPCS: 87086 ==

== ENCOUNTER → 2021-01-19 | Outpatient (CLI) | payer OTHER ==
[2021-01-19 09:29] LABS: BASO % 1 % (0-3); EOS # 0.1 x10^3/uL (0.0-0.7); EOS % 2 % (0-3); HEMATOCRIT 39.4 % (36.0-47.0); HEMOGLOBIN 13.1 g/dL (12.0-15.5); LYMPH # 1.4 x10^3/uL (1.0-4.8); LYMPH % 27 % (24-48); MEAN CORPUSCULAR HEMOGLOBIN 28 pg (25-35); MEAN CORPUSCULAR HGB CONC 33 g/dL (31-37); MEAN CORPUSCULAR VOLUME 84 fL (79-100); MONO # 0.4 x10^3/uL (0.0-1.1); MONO % 8 % (0-9); NEUT # 3.4 x10^3/uL (1.8-7.7); NEUT % 63 % (31-73); PLATELET COUNT 189 x10^3/uL (140-400); RED BLOOD COUNT 4.67 x10^6/uL (3.50-5.40); RED CELL DISTRIBUTION WIDTH 14.8 % (11.5-14.5); WHITE BLOOD COUNT 5.3 x10^3/uL (4.0-11.0)
[2021-01-19 13:02] LABS: ALBUMIN 4.4 g/dL (3.4-5.0); ALBUMIN/GLOBULIN RATIO 1.2 (1.0-1.7); CALCIUM 9.2 mg/dL (8.5-10.1); CREATININE 1.1 mg/dL (0.6-1.0); GFR 49.7; MAGNESIUM 2.3 mg/dL (1.8-2.4); POTASSIUM 4.5 mmol/L (3.5-5.1); TOTAL BILIRUBIN 0.4 mg/dL (0.2-1.0); TOTAL PROTEIN 8.1 g/dL (6.4-8.2)
[2021-01-19 13:04] LABS: FREE T4 0.73 ng/dL (0.76-1.46); THYROID STIM HORMONE (TSH) 2.094 uIU/mL (0.358-3.74)
== END ==
LOC: LAB 09:12
PROVIDERS: ATTEND Family Medicine
DX: I10 Essential (primary) hypertension (principal); T14.8XXA Other injury of unspecified body region, initial encounter
CPT/HCPCS: 36415; 80053; 83735; 84439; 84443; 85025

== ENCOUNTER → 2021-01-21 | Outpatient (CLI) | payer OTHER ==
--- NOTE | 2021-01-21 14:58 | RAD ---
Bilateral digital screening mammograms with 3-D tomosynthesis: Reason for examination: Routine screening. Comparison is made to previous study dated January 23, 2019. 04/12/2016 Bilateral mammograms in CC and oblique projections were obtained with 2-D imaging and 3-D tomosynthes is imaging on a Siemens Inspiration unit and reviewed on the workstation. Interpretation was made wit h the benefit of CAD. The skin and nipples show no abnormalities. No abnormal axillary lymph nodes are seen. The breast par enchyma shows scattered fatty and fibroglandular density. (Breast density: Category B.) There are no dominant masses, suspicious calcifications or architectural distortion. Benign calcifications are pre sent. Impression: No evidence of malignancy. Recommend routine screening. BI-RAD Category 2: Benign. "Our facility is accredited by the [employer] Mammography Program." This patient's information has been entered into a reminder system for the patient to be notified wit h the results of her examination and a target date for the next mammogram. Electronically signed by: Enio Shelton DO (01/21/2021 2:55 PM) [id number]
== END ==
LOC: MAMMO 08:37
PROVIDERS: ATTEND Family Medicine
DX: Z12.31 Encounter for screening mammogram for malignant neoplasm of breast (principal)
CPT/HCPCS: 77063; 77067